=== PATIENT | female | born 1935 | race Caucasian/White ===

== ENCOUNTER 2017-09-17 23:00 | Inpatient (IN) | payer MEDICARE, MEDICAID ==
[~2017-09-17] VITALS: Ht 160 cm; Wt 66.0 kg
[2017-09-18] MEDS ORDERED: ONDANSETRON HCL 4MG/2ML VIAL IV STA (01:42)
[2017-09-18] MEDS ORDERED: SODIUM CHLORIDE 0.9% 1,000 ML IV ONE (01:42)
[2017-09-18] MEDS ORDERED: MORPHINE SULFATE 4 MG/ML CPJ (NOT FOR IM USE) IV STA (01:42)
[2017-09-18 02:12] LABS: BASOPHILS % 0.8 % (0.0-2.0); EOSINOPHILS % 1.4 % (0.0-5.0); HEMATOCRIT. 34.3 % (36.0-48.0); LYMPHOCYTES % 27.2 % (20.0-50.0); MEAN CORPUSCULAR HEMOGLOBIN 33.9 pg (28.0-32.0); MEAN CORPUSCULAR VOLUME 96.7 fL (81.0-99.0); MEAN PLATELET VOLUME 7.8 fl (7.4-10.4); MONOCYTES % 10.3 % (2.0-8.0); NEUTROPHILS % 60.3 % (40.0-76.0); PLATELET 235 x1000/uL (130-400); RED BLOOD CELL COUNT 3.55 mill/uL (4.2-5.4); RED CELL DISTRIBUTION WIDTH 12.8 % (11.6-14.6)
[2017-09-18 02:31] LABS: CARBON DIOXIDE 23 mEq/L (21-32); CHLORIDE 96 mEq/L (98-107); TROPONIN I < 0.02 ng/mL (0.00-0.04)
[2017-09-18] MEDS ORDERED: ACETAMINOPHEN 325MG TABLET PO PRN ×2 (04:00→08:00)
[2017-09-18 06:00] VITALS: BP 147/68
[2017-09-18] MEDS: SODIUM CHLORIDE 0.9% 1,000 ML IV SCH ×2 (07:09→17:26)
[2017-09-18] MEDS: TRAMADOL 50MG TABLET PO PRN ×2 (07:46→20:43)
[2017-09-18 08:00] VITALS: BP 145/71
[2017-09-18] MEDS ORDERED: MAGNESIUM/ALUMINUM HYDROXIDE/SIMETHICONE 30ML UDC PO PRN (08:00)
[2017-09-18] MEDS ORDERED: ONDANSETRON HCL 4MG/2ML VIAL IV PRN (08:00)
[2017-09-18] MEDS ORDERED: POTASSIUM CHLORIDE 20MEQ TABLET SR PO NR (08:00)
[2017-09-18] MEDS ORDERED: GUAIFENESIN 200MG/10ML SUGAR FREE UDC PO PRN (08:00)
[2017-09-18] MEDS ORDERED: CLONIDINE 0.1MG TABLET PO PRN (08:00)
[2017-09-18] MEDS ORDERED: ACETAMINOPHEN 650MG/20.3ML UDC GT PRN (08:00)
[2017-09-18] MEDS ORDERED: ACETAMINOPHEN 650MG SUPP PR PRN (08:00)
[2017-09-18] MEDS ORDERED: NA PHOS,M-B/NA PHOS,DI-BA ENEMA 118ML PR PRN (08:00)
[2017-09-18] MEDS ORDERED: HYDROCODONE/ACETAMINOPHEN 10/325MG TABLET PO PRN (08:00)
[2017-09-18] MEDS ORDERED: IPRATROPIUM/ALBUTEROL 0.5-3(2.5)MG/3ML NEB INH PRN (08:00)
[2017-09-18 08:24] LABS: BASOPHILS % 0.7 % (0.0-2.0); EOSINOPHILS % 1.5 % (0.0-5.0); HEMATOCRIT. 33.6 % (36.0-48.0); LYMPHOCYTES % 33.5 % (20.0-50.0); MEAN CORPUSCULAR HEMOGLOBIN 34.6 pg (28.0-32.0); MEAN CORPUSCULAR VOLUME 97.3 fL (81.0-99.0); MEAN PLATELET VOLUME 8.1 fl (7.4-10.4); MONOCYTES % 11.1 % (2.0-8.0); NEUTROPHILS % 53.2 % (40.0-76.0); PLATELET 237 x1000/uL (130-400); RED BLOOD CELL COUNT 3.46 mill/uL (4.2-5.4); RED CELL DISTRIBUTION WIDTH 12.7 % (11.6-14.6)
[2017-09-18 08:50] LABS: CARBON DIOXIDE 23 mEq/L (21-32); CHLORIDE 97 mEq/L (98-107)
[2017-09-18] MEDS: ENOXAPARIN 40MG/0.4ML SYR SUBCUT SCH (09:16)
[2017-09-18] MEDS: SODIUM CHLORIDE 0.9% INJ 3ML FLUSH IVF SCH ×2 (09:16→20:46)
[2017-09-18 09:47] LABS: T4 FREE 1.38 ng/dL (0.76-1.46)
[2017-09-18] MEDS ORDERED: MONT10TA21 PO (09:52)
[2017-09-18] MEDS ORDERED: TRAM50TA3 PO (09:52)
[2017-09-18] MEDS ORDERED: FLUT1DIS6 IH (09:52)
[2017-09-18] MEDS ORDERED: SITA50TA3 PO (09:52)
[2017-09-18] MEDS ORDERED: OMEP20TA2 PO (09:52)
[2017-09-18] MEDS ORDERED: CHOL500010 PO (09:52)
[2017-09-18] MEDS ORDERED: MOMETASONE (09:52)
[2017-09-18] MEDS ORDERED: DICL100T2 PO (09:52)
[2017-09-18] MEDS ORDERED: BENA20TA3 PO (09:52)
[2017-09-18 10:26] LABS: CLARITY URINE CLEAR (CLEAR); COLOR URINE YELLOW (YELLOW); GLUCOSE URINE NEGATIVE (NEGATIVE); KETONES URINE NEGATIVE (NEGATIVE); LEUKOCYTE ESTERASE URINE NEGATIVE (NEGATIVE); NITRITE URINE NEGATIVE (NEGATIVE); OCCULT BLOOD URINE NEGATIVE (NEGATIVE); PH URINE 7.5 (4.5-8.0); PROTEIN URINE NEGATIVE (NEGATIVE); SPECIFIC GRAVITY URINE 1.013 (1.005-1.030)
[2017-09-18 10:37] LABS: *AMPHETAMINES SCREEN URINE NEGATIVE (NEGATIVE); *BARBITURATES SCREEN URINE NEGATIVE (NEGATIVE); *BENZODIAZEPINES SCREEN URINE NEGATIVE (NEGATIVE); *COCAINE SCREEN URINE NEGATIVE (NEGATIVE); CANNABINOID URINE SCREEN NEGATIVE (NEGATIVE); METHADONE URINE SCREEN NEGATIVE (NEGATIVE); OPIATES URINE SCREEN PRESUMTIVE POSITIVE (NEGATIVE); PHENCYCLIDINE URINE SCREEN NEGATIVE (NEGATIVE)
[2017-09-18 12:00] VITALS: BP 138/63
[2017-09-18] MEDS: BLOOD SUGAR DIAGNOSTIC STRIP TEST SCH ×3 (12:24→20:33)
[2017-09-18] MEDS: INSULIN LISPRO 100 UNITS/ML SUBCUT SCH ×3 (12:24→20:33)
[2017-09-18] MEDS ORDERED: DEXTROSE 50% WATER 50ML SYRINGE IV PRN (12:30)
[2017-09-18] MEDS ORDERED: HYDROCODONE/ACETAMINOPHEN 5/325MG TABLET PO PRN (13:15)
[2017-09-18 16:06] VITALS: BP 128/57
[2017-09-18 16:10] LABS: CREATINE KINASE 102 IU/L (26-192); CREATINE KINASE MB FRACTION 3.3 ng/mL (0.5-3.6); TROPONIN I < 0.02 ng/mL (0.00-0.04)
[2017-09-18 16:37] LABS: T4 FREE 1.29 ng/dL (0.76-1.46)
[2017-09-18 16:57] LABS: FOLIC ACID (FOLATE) SERUM 19.4 ng/mL (>5.38)
[2017-09-18 20:00] VITALS: BP_SYST 140; BP_SYST 145; BP_DIAS 66; BP_DIAS 76
[2017-09-18] MEDS: DOCUSATE SODIUM 100MG CAPSULE PO PRN (20:35)
[2017-09-18 23:21] LABS: AMMONIA 36 uMol/L (<32)
[2017-09-18 23:30] LABS: CREATINE KINASE 111 IU/L (26-192); CREATINE KINASE MB FRACTION 3.5 ng/mL (0.5-3.6); TROPONIN I < 0.02 ng/mL (0.00-0.04)
[2017-09-19] VITALS: BP 133/65
[2017-09-19 04:00] VITALS: BP 137/60
[2017-09-19] MEDS: BLOOD SUGAR DIAGNOSTIC STRIP TEST SCH ×4 (05:23→21:41)
[2017-09-19] MEDS: INSULIN LISPRO 100 UNITS/ML SUBCUT SCH ×4 (05:23→21:54)
[2017-09-19] MEDS: SODIUM CHLORIDE 0.9% 1,000 ML IV SCH ×2 (05:25→21:44)
[2017-09-19] MEDS: SODIUM CHLORIDE 0.9% INJ 3ML FLUSH IVF SCH ×3 (05:48→21:42)
[2017-09-19 05:52] LABS: BASOPHILS % 0.7 % (0.0-2.0); EOSINOPHILS % 2.5 % (0.0-5.0); HEMATOCRIT. 34.8 % (36.0-48.0); LYMPHOCYTES % 32.7 % (20.0-50.0); MEAN CORPUSCULAR HEMOGLOBIN 33.8 pg (28.0-32.0); MEAN CORPUSCULAR VOLUME 98.2 fL (81.0-99.0); MEAN PLATELET VOLUME 8.2 fl (7.4-10.4); MONOCYTES % 11.3 % (2.0-8.0); NEUTROPHILS % 52.8 % (40.0-76.0); PLATELET 236 x1000/uL (130-400); RED BLOOD CELL COUNT 3.54 mill/uL (4.2-5.4); RED CELL DISTRIBUTION WIDTH 13.1 % (11.6-14.6)
[2017-09-19 06:41] LABS: CARBON DIOXIDE 26 mEq/L (21-32); CHLORIDE 96 mEq/L (98-107)
[2017-09-19 06:44] LABS: CREATINE KINASE 98 IU/L (26-192); CREATINE KINASE MB FRACTION 2.9 ng/mL (0.5-3.6); TROPONIN I < 0.02 ng/mL (0.00-0.04)
[2017-09-19 08:00] VITALS: BP 141/54
[2017-09-19] MEDS: DIPHENHYDRAMINE 50MG/ML VIAL IV PRN ×2 (09:29→14:49)
[2017-09-19] MEDS: ENOXAPARIN 40MG/0.4ML SYR SUBCUT SCH (09:29)
[2017-09-19 12:00] VITALS: BP 147/64
[2017-09-19] MEDS ORDERED: METHYLPREDNISOLONE SOD SUCC 125 MG/2 ML VIAL IV NR (15:00)
[2017-09-19] MEDS: LORATADINE 10MG TABLET PO SCH (15:55)
[2017-09-19] MEDS: TRAMADOL 50MG TABLET PO PRN ×2 (15:56→21:42)
[2017-09-19 16:00] VITALS: BP 139/63
[2017-09-19 20:00] VITALS: BP_SYST 142; BP_SYST 143; BP_DIAS 72; BP_DIAS 97
[2017-09-19] MEDS: DOCUSATE SODIUM 100MG CAPSULE PO PRN (21:41)
[2017-09-20] VITALS (7 sets, daily range): BP systolic 116–159; BP diastolic 48–82
[2017-09-20] MEDS: BLOOD SUGAR DIAGNOSTIC STRIP TEST SCH ×3 (05:49→18:07)
[2017-09-20] MEDS: SODIUM CHLORIDE 0.9% INJ 3ML FLUSH IVF SCH ×2 (05:55→13:28)
[2017-09-20 06:45] LABS: BASOPHILS % 0.2 % (0.0-2.0); HEMATOCRIT. 36.5 % (36.0-48.0); HEMOGLOBIN. 12.6 g/dL (12.0-16.0); LYMPHOCYTES % 26.2 % (20.0-50.0); MEAN CORPUSCULAR HEMOGLOBIN 33.8 pg (28.0-32.0); MEAN CORPUSCULAR VOLUME 97.6 fL (81.0-99.0); MEAN PLATELET VOLUME 8.2 fl (7.4-10.4); MONOCYTES % 3.8 % (2.0-8.0); NEUTROPHILS % 69.8 % (40.0-76.0); PLATELET 251 x1000/uL (130-400); RED BLOOD CELL COUNT 3.74 mill/uL (4.2-5.4); RED CELL DISTRIBUTION WIDTH 12.9 % (11.6-14.6)
[2017-09-20 07:41] LABS: CHLORIDE 92 mEq/L (98-107)
[2017-09-20] MEDS: SODIUM CHLORIDE 0.9% 1,000 ML IV SCH (07:45)
[2017-09-20 08:08] LABS: CARBON DIOXIDE 22 mEq/L (21-32)
[2017-09-20] MEDS: ENOXAPARIN 40MG/0.4ML SYR SUBCUT SCH (08:41)
[2017-09-20] MEDS: LORATADINE 10MG TABLET PO SCH (08:41)
[2017-09-20] MEDS: INSULIN LISPRO 100 UNITS/ML SUBCUT SCH ×3 (08:42→18:07)
[2017-09-20] MEDS: TRAMADOL 50MG TABLET PO PRN (12:03)
== END 2017-09-20 18:40 | disposition home or self-care (01) | DRG 73 ==
LOC: ER 23:00 → 7WST 09-18 03:57 → EDBEDREQ 09-18 03:59 → EDBEDREQTM 09-18 03:59 → ENRESERV 09-18 04:07
PROVIDERS: ADMIT Family Medicine; ATTEND Family Medicine
PROC: 4A00X4Z Measurement of Central Nervous Electrical Activity, External Approach (ICD-10-PCS; principal; 2017-09-19)
DX: G90.8 Other disorders of autonomic nervous system (principal); G92 Toxic encephalopathy; E11.9 Type 2 diabetes mellitus without complications; G30.9 Alzheimer's disease, unspecified; F02.80 Dementia in other diseases classified elsewhere, unspecified severity, without behavioral disturbance, psychotic disturbance, mood disturbance, and anxiety; E87.1 Hypo-osmolality and hyponatremia; W18.39XA Other fall on same level, initial encounter; I35.1 Nonrheumatic aortic (valve) insufficiency; E87.6 Hypokalemia; S20.219A Contusion of unspecified front wall of thorax, initial encounter; I10 Essential (primary) hypertension; J45.909 Unspecified asthma, uncomplicated; R21 Rash and other nonspecific skin eruption; M19.90 Unspecified osteoarthritis, unspecified site; M81.0 Age-related osteoporosis without current pathological fracture; Y93.89 Activity, other specified; Y92.89 Other specified places as the place of occurrence of the external cause; Y99.8 Other external cause status
CPT/HCPCS: 36415; 70450; 70544; 70553; 71010; 71100; 80048; 80053; 80061; 80305; 81003; 82140; 82550; 82553; 82607; 82746; 82962; 83036; 83880; 84439; 84443; 84481; 84484; 85025; 85379; 87086; 93005; 93306; 93880; 96374; 96375; 97162; 97166; 97530; 99285; A6261; J1200; J1650; J1815; J2270; J2405; J2930; J7030

== ENCOUNTER 2019-11-29 22:10 | Inpatient (IN) | payer MEDICARE, MEDICAID ==
[~2019-11-29] VITALS: Ht 152.4 cm; Wt 70.3 kg
[~2019-11-29 22:10] MED LIST: BENA20TA10 PO; CARB1TAB9 PO; MEMA1TAB2 PO; METF-815 MT; SITA50TA3 PO
[2019-11-29 22:40] VITALS: BP 147/74
[2019-11-29] MEDS ORDERED: DEXTROSE 50% WATER 50ML SYRINGE IV PRN (23:15)
[2019-11-29] MEDS ORDERED: DOCUSATE SODIUM 100MG CAPSULE PO PRN (23:15)
[2019-11-29] MEDS ORDERED: MAGNESIUM/ALUMINUM HYDROXIDE/SIMETHICONE 30ML UDC PO PRN (23:15)
[2019-11-29] MEDS ORDERED: ONDANSETRON HCL 4MG/2ML INJ IV PRN (23:15)
[2019-11-29] MEDS ORDERED: CLONIDINE 0.1MG TABLET PO PRN (23:15)
[2019-11-30 05:42] LABS: BASOPHILS % 0.3 % (0.0-2.0); EOSINOPHILS % 3.5 % (0.0-5.0); HEMATOCRIT. 32.7 % (36.0-48.0); HEMOGLOBIN. 11.3 g/dL (12.0-16.0); LYMPHOCYTES % 15.4 % (20.0-50.0); MEAN CORPUSCULAR HEMOGLOBIN 34.2 pg (28.0-32.0); MEAN CORPUSCULAR VOLUME 99.1 fL (81.0-99.0); MEAN PLATELET VOLUME 8.8 fl (7.4-10.4); MONOCYTES % 9.9 % (2.0-8.0); NEUTROPHILS % 70.9 % (40.0-76.0); PLATELET 276 x1000/uL (130-400); RED CELL DISTRIBUTION WIDTH 13.2 % (11.6-14.6)
[2019-11-30 06:07] LABS: CHLORIDE 104 mEq/L (98-107)
[2019-11-30] MEDS: CARBIDOPA/LEVODOPA 25/100MG TABLET PO SCH ×3 (06:24→21:04)
[2019-11-30] MEDS: OMEPRAZOLE 20MG CAPSULE EXTENDED RELEASE PO SCH (06:25)
[2019-11-30] MEDS: BLOOD SUGAR DIAGNOSTIC STRIP TEST SCH ×4 (06:28→20:45)
[2019-11-30] MEDS: INSULIN LISPRO 100 UNITS/ML SUBCUT SCH ×5 (06:55→21:47)
[2019-11-30] MEDS: ACETYLCYSTEINE 100MG/ML 10% VIAL 4ML INH SCH ×3 (07:27→22:15)
[2019-11-30] MEDS: IPRATROPIUM/ALBUTEROL 0.5-3(2.5)MG/3ML NEB HHN PRN ×2 (07:27→15:03)
[2019-11-30 08:00] VITALS: BP 149/62
[2019-11-30] MEDS ORDERED: ENOXAPARIN 30MG/0.3ML SYR SUBCUT SCH (09:00)
[2019-11-30] MEDS ORDERED: MEMANTINE 28 MG PO SCH (09:00)
[2019-11-30] MEDS: GUAIFENESIN 600MG ER TABLET PO SCH ×2 (09:38→20:45)
[2019-11-30] MEDS ORDERED: NITROGLYCERIN 0.4MG TABLET SL SL NR (11:00)
[2019-11-30] MEDS: MONTELUKAST SODIUM 10MG TABLET PO SCH (17:56)
[2019-11-30] MEDS: METFORMIN HCL 500MG TABLET PO SCH (17:56)
[2019-11-30] MEDS: CLONIDINE 0.1MG TABLET PO SCH ×2 (18:17→21:04)
[2019-11-30 20:00] VITALS: BP 138/69
[2019-11-30] MEDS: BUDESONIDE 0.5MG/2ML NEB HHN SCH (20:20)
[2019-12-01] MEDS: IPRATROPIUM/ALBUTEROL 0.5-3(2.5)MG/3ML NEB HHN PRN ×3 (00:16→17:00)
[2019-12-01] MEDS: CARBIDOPA/LEVODOPA 25/100MG TABLET PO SCH ×3 (05:47→20:55)
[2019-12-01] MEDS: CLONIDINE 0.1MG TABLET PO SCH ×3 (05:48→20:56)
[2019-12-01] MEDS: BLOOD SUGAR DIAGNOSTIC STRIP TEST SCH ×4 (05:48→20:55)
[2019-12-01] MEDS: OMEPRAZOLE 20MG CAPSULE EXTENDED RELEASE PO SCH (06:01)
[2019-12-01] MEDS: INSULIN LISPRO 100 UNITS/ML SUBCUT SCH ×4 (06:25→21:00)
[2019-12-01 07:35] LABS: BASOPHILS % 0.4 % (0.0-2.0); EOSINOPHILS % 2.8 % (0.0-5.0); HEMATOCRIT. 32.4 % (36.0-48.0); HEMOGLOBIN. 10.8 g/dL (12.0-16.0); LYMPHOCYTES % 18.4 % (20.0-50.0); MEAN PLATELET VOLUME 8.9 fl (7.4-10.4); MONOCYTES % 9.7 % (2.0-8.0); NEUTROPHILS % 68.7 % (40.0-76.0); PLATELET 300 x1000/uL (130-400); RED BLOOD CELL COUNT 3.27 mill/uL (4.2-5.4)
[2019-12-01 07:55] LABS: CHLORIDE 102 mEq/L (98-107)
[2019-12-01 08:00] VITALS: BP 111/51
[2019-12-01] MEDS: ACETYLCYSTEINE 100MG/ML 10% VIAL 4ML INH SCH ×2 (08:10→17:00)
[2019-12-01] MEDS: BUDESONIDE 0.5MG/2ML NEB HHN SCH ×2 (08:23→21:19)
[2019-12-01] MEDS: ENOXAPARIN 40MG/0.4ML SYR SUBCUT SCH (09:04)
[2019-12-01] MEDS: GUAIFENESIN 600MG ER TABLET PO SCH ×2 (09:04→20:55)
[2019-12-01] MEDS: MEMANTINE HCL 10MG TABLET PO SCH ×2 (10:11→20:55)
[2019-12-01] MEDS: MONTELUKAST SODIUM 10MG TABLET PO SCH (16:46)
[2019-12-01] MEDS: METFORMIN HCL 500MG TABLET PO SCH (16:46)
[2019-12-01 20:00] VITALS: BP 131/56
[2019-12-01 20:31] LABS: CLARITY URINE CLEAR (CLEAR); COLOR URINE YELLOW (YELLOW); KETONES URINE NEGATIVE (NEGATIVE); LEUKOCYTE ESTERASE URINE 1+ (NEGATIVE); NITRITE URINE NEGATIVE (NEGATIVE); OCCULT BLOOD URINE NEGATIVE (NEGATIVE); PH URINE 5.5 (4.5-8.0); PROTEIN URINE NEGATIVE (NEGATIVE); SPECIFIC GRAVITY URINE 1.012 (1.005-1.030); UROBILINOGEN URINE 0.2 E.U./dL (0.2-1.0)
[2019-12-02] MEDS: IPRATROPIUM/ALBUTEROL 0.5-3(2.5)MG/3ML NEB HHN PRN ×3 (01:04→15:36)
[2019-12-02] MEDS: ACETYLCYSTEINE 100MG/ML 10% VIAL 4ML INH SCH ×3 (01:04→15:32)
[2019-12-02] MEDS: CARBIDOPA/LEVODOPA 25/100MG TABLET PO SCH ×3 (05:48→22:08)
[2019-12-02] MEDS: FAMOTIDINE 20MG TABLET PO SCH (05:48)
[2019-12-02] MEDS: BLOOD SUGAR DIAGNOSTIC STRIP TEST SCH ×4 (05:48→21:00)
[2019-12-02] MEDS: CLONIDINE 0.1MG TABLET PO SCH ×3 (05:59→22:08)
[2019-12-02] MEDS: INSULIN LISPRO 100 UNITS/ML SUBCUT SCH ×4 (06:00→22:27)
[2019-12-02 08:00] VITALS: BP 110/66
[2019-12-02] MEDS: MEMANTINE HCL 10MG TABLET PO SCH ×2 (08:18→22:08)
[2019-12-02] MEDS: GUAIFENESIN 600MG ER TABLET PO SCH ×2 (08:18→22:08)
[2019-12-02] MEDS: ENOXAPARIN 40MG/0.4ML SYR SUBCUT SCH (08:18)
[2019-12-02] MEDS: BUDESONIDE 0.5MG/2ML NEB HHN SCH ×2 (08:32→20:05)
[2019-12-02] MEDS: METFORMIN HCL 500MG TABLET PO SCH (16:55)
[2019-12-02] MEDS: MONTELUKAST SODIUM 10MG TABLET PO SCH (16:55)
[2019-12-02 20:00] VITALS: BP 128/55
[2019-12-03] MEDS: IPRATROPIUM/ALBUTEROL 0.5-3(2.5)MG/3ML NEB HHN PRN ×4 (00:54→21:24)
[2019-12-03] MEDS: ACETYLCYSTEINE 100MG/ML 10% VIAL 4ML INH SCH ×3 (00:54→15:28)
[2019-12-03] MEDS: BLOOD SUGAR DIAGNOSTIC STRIP TEST SCH ×4 (06:47→20:45)
[2019-12-03] MEDS: INSULIN LISPRO 100 UNITS/ML SUBCUT SCH ×4 (06:48→20:45)
[2019-12-03] MEDS: CARBIDOPA/LEVODOPA 25/100MG TABLET PO SCH ×3 (06:50→21:36)
[2019-12-03] MEDS: CLONIDINE 0.1MG TABLET PO SCH ×3 (06:50→21:38)
[2019-12-03] MEDS: FAMOTIDINE 20MG TABLET PO SCH (06:51)
[2019-12-03] MEDS: MEMANTINE HCL 10MG TABLET PO SCH (09:00)
[2019-12-03] MEDS: ENOXAPARIN 40MG/0.4ML SYR SUBCUT SCH (09:34)
[2019-12-03] MEDS: BUDESONIDE 0.5MG/2ML NEB HHN SCH (09:39)
[2019-12-03] MEDS: FLUCONAZOLE 100MG TABLET PO SCH (12:49)
[2019-12-03 14:45] VITALS: BP 105/49
[2019-12-03] MEDS: METFORMIN HCL 500MG TABLET PO SCH (17:23)
[2019-12-03] MEDS: MONTELUKAST SODIUM 10MG TABLET PO SCH (17:23)
[2019-12-03] MEDS: MEMANTINE HCL 28 MG XX SCH (18:15)
[2019-12-03 20:00] VITALS: BP 112/59
[2019-12-03] MEDS: GUAIFENESIN 600MG ER TABLET PO SCH ×3 (21:36→22:42)
[2019-12-04] MEDS: ACETYLCYSTEINE 100MG/ML 10% VIAL 4ML INH SCH ×3 (00:19→20:59)
[2019-12-04] MEDS: IPRATROPIUM/ALBUTEROL 0.5-3(2.5)MG/3ML NEB HHN PRN ×3 (00:21→20:58)
[2019-12-04] MEDS: CARBIDOPA/LEVODOPA 25/100MG TABLET PO SCH ×3 (06:17→21:10)
[2019-12-04] MEDS: FAMOTIDINE 20MG TABLET PO SCH (06:17)
[2019-12-04] MEDS: CLONIDINE 0.1MG TABLET PO SCH ×3 (06:18→21:11)
[2019-12-04] MEDS: BLOOD SUGAR DIAGNOSTIC STRIP TEST SCH ×4 (06:18→21:11)
[2019-12-04] MEDS: INSULIN LISPRO 100 UNITS/ML SUBCUT SCH ×4 (06:36→21:13)
[2019-12-04 08:00] VITALS: BP 134/54
[2019-12-04] MEDS: GUAIFENESIN 600MG ER TABLET PO SCH ×2 (08:30→21:10)
[2019-12-04] MEDS: FLUCONAZOLE 100MG TABLET PO SCH (08:30)
[2019-12-04] MEDS: ENOXAPARIN 40MG/0.4ML SYR SUBCUT SCH (08:31)
[2019-12-04] MEDS: MEMANTINE HCL 28 MG XX SCH (08:32)
[2019-12-04] MEDS: BUDESONIDE 0.5MG/2ML NEB HHN SCH (13:19)
[2019-12-04] MEDS: MONTELUKAST SODIUM 10MG TABLET PO SCH (16:22)
[2019-12-04] MEDS: METFORMIN HCL 500MG TABLET PO SCH (16:22)
[2019-12-04] MEDS: ACETAMINOPHEN 325MG TABLET PO PRN (18:28)
[2019-12-04 20:00] VITALS: BP 110/53
[2019-12-05] MEDS: ACETYLCYSTEINE 100MG/ML 10% VIAL 4ML INH SCH ×2 (00:30→08:57)
[2019-12-05] MEDS: IPRATROPIUM/ALBUTEROL 0.5-3(2.5)MG/3ML NEB HHN PRN ×3 (00:30→16:13)
[2019-12-05] MEDS: FAMOTIDINE 20MG TABLET PO SCH (06:05)
[2019-12-05] MEDS: CLONIDINE 0.1MG TABLET PO SCH ×3 (06:05→20:25)
[2019-12-05] MEDS: BLOOD SUGAR DIAGNOSTIC STRIP TEST SCH ×4 (06:05→20:24)
[2019-12-05] MEDS: CARBIDOPA/LEVODOPA 25/100MG TABLET PO SCH ×3 (06:05→20:24)
[2019-12-05] MEDS: INSULIN LISPRO 100 UNITS/ML SUBCUT SCH ×4 (06:26→21:00)
[2019-12-05 08:00] VITALS: BP 115/50
[2019-12-05] MEDS: ENOXAPARIN 40MG/0.4ML SYR SUBCUT SCH (08:36)
[2019-12-05] MEDS: FLUCONAZOLE 100MG TABLET PO SCH (08:36)
[2019-12-05] MEDS: MEMANTINE HCL 28 MG XX SCH (08:36)
[2019-12-05 08:51] LABS: BASOPHILS % 0.6 % (0.0-2.0); EOSINOPHILS % 2.5 % (0.0-5.0); HEMATOCRIT. 31.9 % (36.0-48.0); HEMOGLOBIN. 10.8 g/dL (12.0-16.0); LYMPHOCYTES % 21.2 % (20.0-50.0); MEAN CORPUSCULAR HEMOGLOBIN 33.6 pg (28.0-32.0); MEAN CORPUSCULAR VOLUME 98.9 fL (81.0-99.0); MEAN PLATELET VOLUME 8.2 fl (7.4-10.4); MONOCYTES % 8.6 % (2.0-8.0); NEUTROPHILS % 67.1 % (40.0-76.0); PLATELET 373 x1000/uL (130-400); RED BLOOD CELL COUNT 3.22 mill/uL (4.2-5.4); RED CELL DISTRIBUTION WIDTH 13.1 % (11.6-14.6)
[2019-12-05 10:22] LABS: CHLORIDE 103 mEq/L (98-107)
[2019-12-05] MEDS: GUAIFENESIN 600MG ER TABLET PO SCH ×2 (10:22→20:23)
[2019-12-05 10:29] LABS: PHOSPHORUS 3.1 mg/dL (2.5-4.9)
[2019-12-05] MEDS: METFORMIN HCL 500MG TABLET PO SCH (17:31)
[2019-12-05] MEDS: MONTELUKAST SODIUM 10MG TABLET PO SCH (17:31)
[2019-12-05 20:00] VITALS: BP 105/53
[2019-12-05] MEDS: ACETAMINOPHEN 325MG TABLET PO PRN (20:24)
[2019-12-06] MEDS: FAMOTIDINE 20MG TABLET PO SCH (06:07)
[2019-12-06] MEDS: BLOOD SUGAR DIAGNOSTIC STRIP TEST SCH ×4 (06:07→20:39)
[2019-12-06] MEDS: CLONIDINE 0.1MG TABLET PO SCH ×4 (06:07→20:35)
[2019-12-06] MEDS: CARBIDOPA/LEVODOPA 25/100MG TABLET PO SCH ×3 (06:07→21:20)
[2019-12-06] MEDS: INSULIN LISPRO 100 UNITS/ML SUBCUT SCH ×4 (06:17→21:22)
[2019-12-06 07:10] LABS: 25-HYDROXY VITAMIN D3 27 ng/mL (.)
[2019-12-06 08:00] VITALS: BP 155/97
[2019-12-06] MEDS: FLUCONAZOLE 100MG TABLET PO SCH (08:25)
[2019-12-06] MEDS: ENOXAPARIN 40MG/0.4ML SYR SUBCUT SCH (08:25)
[2019-12-06] MEDS: GUAIFENESIN 600MG ER TABLET PO SCH ×2 (08:25→20:34)
[2019-12-06] MEDS: MEMANTINE HCL 28 MG XX SCH (08:28)
[2019-12-06] MEDS: IPRATROPIUM/ALBUTEROL 0.5-3(2.5)MG/3ML NEB HHN PRN ×3 (08:33→15:31)
[2019-12-06 12:30] VITALS: BP 106/67
[2019-12-06] MEDS: ERGOCALCIFEROL 50000UNITS CAPSULE PO SCH (14:15)
[2019-12-06] MEDS: METFORMIN HCL 500MG TABLET PO SCH (17:29)
[2019-12-06] MEDS: MONTELUKAST SODIUM 10MG TABLET PO SCH (17:29)
[2019-12-06 20:00] VITALS: BP 132/59
[2019-12-07] MEDS: FAMOTIDINE 20MG TABLET PO SCH (06:06)
[2019-12-07] MEDS: CARBIDOPA/LEVODOPA 25/100MG TABLET PO SCH ×3 (06:06→23:22)
[2019-12-07] MEDS: BLOOD SUGAR DIAGNOSTIC STRIP TEST SCH ×4 (06:10→21:00)
[2019-12-07] MEDS: INSULIN LISPRO 100 UNITS/ML SUBCUT SCH ×4 (06:39→21:00)
[2019-12-07 07:06] LABS: BASOPHILS % 0.7 % (0.0-2.0); EOSINOPHILS % 3.4 % (0.0-5.0); HEMOGLOBIN. 11.3 g/dL (12.0-16.0); LYMPHOCYTES % 33.4 % (20.0-50.0); MEAN CORPUSCULAR HEMOGLOBIN 33.8 pg (28.0-32.0); MEAN CORPUSCULAR VOLUME 98.7 fL (81.0-99.0); MEAN PLATELET VOLUME 8.5 fl (7.4-10.4); MONOCYTES % 11.1 % (2.0-8.0); NEUTROPHILS % 51.4 % (40.0-76.0); PLATELET 348 x1000/uL (130-400); RED BLOOD CELL COUNT 3.35 mill/uL (4.2-5.4); RED CELL DISTRIBUTION WIDTH 13.3 % (11.6-14.6)
[2019-12-07 07:39] LABS: CHLORIDE 102 mEq/L (98-107)
[2019-12-07 08:00] VITALS: BP 102/32
[2019-12-07] MEDS: CLONIDINE 0.1MG TABLET PO SCH (08:30)
[2019-12-07] MEDS: MEMANTINE HCL 28 MG XX SCH (08:31)
[2019-12-07] MEDS: GUAIFENESIN 600MG ER TABLET PO SCH ×2 (08:31→20:58)
[2019-12-07] MEDS: FLUCONAZOLE 100MG TABLET PO SCH (08:33)
[2019-12-07] MEDS: ENOXAPARIN 40MG/0.4ML SYR SUBCUT SCH (10:12)
[2019-12-07] MEDS: IPRATROPIUM/ALBUTEROL 0.5-3(2.5)MG/3ML NEB HHN PRN (12:25)
[2019-12-07] MEDS: MONTELUKAST SODIUM 10MG TABLET PO SCH (17:38)
[2019-12-07] MEDS: METFORMIN HCL 500MG TABLET PO SCH (17:38)
[2019-12-07 20:00] VITALS: BP 135/66
[2019-12-07] MEDS: GUAIFENESIN 200MG/10ML SUGAR FREE UDC PO PRN (20:59)
[2019-12-07] MEDS: IPRATROPIUM/ALBUTEROL 0.5-3(2.5)MG/3ML NEB HHN SCH (21:08)
[2019-12-07] MEDS: BUDESONIDE 0.5MG/2ML NEB HHN SCH (21:08)
[2019-12-08] MEDS: IPRATROPIUM/ALBUTEROL 0.5-3(2.5)MG/3ML NEB HHN SCH ×4 (01:04→22:13)
[2019-12-08] MEDS: FAMOTIDINE 20MG TABLET PO SCH (06:24)
[2019-12-08] MEDS: CARBIDOPA/LEVODOPA 25/100MG TABLET PO SCH ×3 (06:25→22:00)
[2019-12-08] MEDS: BLOOD SUGAR DIAGNOSTIC STRIP TEST SCH ×4 (06:25→22:00)
[2019-12-08] MEDS: INSULIN LISPRO 100 UNITS/ML SUBCUT SCH ×4 (06:56→23:27)
[2019-12-08] MEDS: BUDESONIDE 0.5MG/2ML NEB HHN SCH ×2 (07:48→22:13)
[2019-12-08 07:53] VITALS: BP 125/53
[2019-12-08] MEDS: FLUCONAZOLE 100MG TABLET PO SCH (08:59)
[2019-12-08] MEDS: GUAIFENESIN 600MG ER TABLET PO SCH ×2 (08:59→22:00)
[2019-12-08] MEDS: AMLODIPINE 2.5MG TABLET PO SCH (08:59)
[2019-12-08] MEDS: ENOXAPARIN 40MG/0.4ML SYR SUBCUT SCH (09:00)
[2019-12-08] MEDS: MEMANTINE HCL 28 MG XX SCH (09:00)
[2019-12-08] MEDS: GUAIFENESIN 200MG/10ML SUGAR FREE UDC PO PRN (09:24)
[2019-12-08] MEDS: MONTELUKAST SODIUM 10MG TABLET PO SCH (16:56)
[2019-12-08] MEDS: METFORMIN HCL 500MG TABLET PO SCH (16:56)
[2019-12-08 20:00] VITALS: BP 140/68
[2019-12-09] MEDS: IPRATROPIUM/ALBUTEROL 0.5-3(2.5)MG/3ML NEB HHN SCH ×4 (03:43→20:41)
[2019-12-09] MEDS: FAMOTIDINE 20MG TABLET PO SCH (06:36)
[2019-12-09] MEDS: BLOOD SUGAR DIAGNOSTIC STRIP TEST SCH ×4 (06:36→21:55)
[2019-12-09] MEDS: CARBIDOPA/LEVODOPA 25/100MG TABLET PO SCH ×3 (06:36→22:11)
[2019-12-09] MEDS: INSULIN LISPRO 100 UNITS/ML SUBCUT SCH ×4 (07:05→22:15)
[2019-12-09 08:00] VITALS: BP 136/73
[2019-12-09] MEDS: GUAIFENESIN 600MG ER TABLET PO SCH ×2 (08:24→22:10)
[2019-12-09] MEDS: FLUCONAZOLE 100MG TABLET PO SCH (08:24)
[2019-12-09] MEDS: MEMANTINE HCL 28 MG XX SCH (08:25)
[2019-12-09] MEDS: AMLODIPINE 2.5MG TABLET PO SCH (08:25)
[2019-12-09] MEDS: ENOXAPARIN 40MG/0.4ML SYR SUBCUT SCH (08:25)
[2019-12-09] MEDS: BUDESONIDE 0.5MG/2ML NEB HHN SCH ×2 (09:51→20:41)
[2019-12-09] MEDS: MONTELUKAST SODIUM 10MG TABLET PO SCH (16:28)
[2019-12-09] MEDS: METFORMIN HCL 500MG TABLET PO SCH (16:28)
[2019-12-09] MEDS: ACETAMINOPHEN 325MG TABLET PO PRN (19:36)
[2019-12-09] MEDS: GUAIFENESIN 200MG/10ML SUGAR FREE UDC PO PRN (19:37)
[2019-12-09 20:00] VITALS: BP 136/72
[2019-12-10] MEDS: BLOOD SUGAR DIAGNOSTIC STRIP TEST SCH ×4 (06:01→21:10)
[2019-12-10] MEDS: CARBIDOPA/LEVODOPA 25/100MG TABLET PO SCH ×3 (06:01→21:09)
[2019-12-10] MEDS: FAMOTIDINE 20MG TABLET PO SCH (06:01)
[2019-12-10] MEDS: INSULIN LISPRO 100 UNITS/ML SUBCUT SCH ×4 (06:49→21:59)
[2019-12-10 08:10] VITALS: BP 137/66
[2019-12-10] MEDS: ENOXAPARIN 40MG/0.4ML SYR SUBCUT SCH (08:38)
[2019-12-10] MEDS: AMLODIPINE 2.5MG TABLET PO SCH (08:38)
[2019-12-10] MEDS: GUAIFENESIN 600MG ER TABLET PO SCH (08:38)
[2019-12-10] MEDS: FLUCONAZOLE 100MG TABLET PO SCH (08:38)
[2019-12-10] MEDS: GUAIFENESIN 200MG/10ML SUGAR FREE UDC PO PRN (09:08)
[2019-12-10] MEDS: MEMANTINE HCL 28 MG XX SCH (09:08)
[2019-12-10] MEDS: IPRATROPIUM/ALBUTEROL 0.5-3(2.5)MG/3ML NEB HHN SCH ×4 (11:00→20:06)
[2019-12-10] MEDS: BUDESONIDE 0.5MG/2ML NEB HHN SCH ×2 (11:00→20:06)
[2019-12-10] MEDS ORDERED: GUAIFENESIN/DM 600MG/30MG ER TAB 12HR PO PRN (14:00)
[2019-12-10] MEDS: ACETYLCYSTEINE 100MG/ML 10% VIAL 4ML INH SCH (15:46)
[2019-12-10] MEDS: METFORMIN HCL 500MG TABLET PO SCH (16:01)
[2019-12-10] MEDS: MONTELUKAST SODIUM 10MG TABLET PO SCH (16:01)
[2019-12-10] MEDS: LIDOCAINE 5% PATCH TOP SCH (16:02)
[2019-12-10 20:00] VITALS: BP 124/67
[2019-12-10] MEDS: FLUTICASONE PROPIONATE 50MCG/SPRAY BOTTLE BOTHNSTRLS SCH (21:10)
[2019-12-11] MEDS: ACETYLCYSTEINE 100MG/ML 10% VIAL 4ML INH SCH ×3 (00:45→16:25)
[2019-12-11] MEDS: IPRATROPIUM/ALBUTEROL 0.5-3(2.5)MG/3ML NEB HHN SCH ×4 (00:46→21:08)
[2019-12-11] MEDS: FAMOTIDINE 20MG TABLET PO SCH (05:35)
[2019-12-11] MEDS: CARBIDOPA/LEVODOPA 25/100MG TABLET PO SCH ×3 (05:35→21:38)
[2019-12-11] MEDS: BLOOD SUGAR DIAGNOSTIC STRIP TEST SCH ×4 (05:36→21:38)
[2019-12-11] MEDS: INSULIN LISPRO 100 UNITS/ML SUBCUT SCH ×4 (06:33→21:46)
[2019-12-11 07:17] LABS: HEMATOCRIT. 35.1 % (36.0-48.0); HEMOGLOBIN. 11.8 g/dL (12.0-16.0); LYMPHOCYTES % 33.9 % (20.0-50.0); MEAN CORPUSCULAR HEMOGLOBIN 33.5 pg (28.0-32.0); MEAN CORPUSCULAR VOLUME 99.6 fL (81.0-99.0); MONOCYTES % 9.4 % (2.0-8.0); NEUTROPHILS % 52.7 % (40.0-76.0); PLATELET 312 x1000/uL (130-400); RED BLOOD CELL COUNT 3.52 mill/uL (4.2-5.4); RED CELL DISTRIBUTION WIDTH 13.4 % (11.6-14.6)
[2019-12-11 07:30] LABS: CHLORIDE 103 mEq/L (98-107)
[2019-12-11 08:05] VITALS: BP 134/69
[2019-12-11] MEDS: MEMANTINE HCL 28 MG XX SCH (08:48)
[2019-12-11] MEDS: AMLODIPINE 2.5MG TABLET PO SCH (08:48)
[2019-12-11] MEDS: FLUTICASONE PROPIONATE 50MCG/SPRAY BOTTLE BOTHNSTRLS SCH ×2 (08:48→21:39)
[2019-12-11] MEDS: ENOXAPARIN 40MG/0.4ML SYR SUBCUT SCH (08:48)
[2019-12-11] MEDS: LIDOCAINE 5% PATCH TOP SCH (08:49)
[2019-12-11] MEDS: GUAIFENESIN 200MG/10ML SUGAR FREE UDC PO PRN ×2 (10:09→21:38)
[2019-12-11] MEDS: MONTELUKAST SODIUM 10MG TABLET PO SCH (16:53)
[2019-12-11] MEDS: METFORMIN HCL 500MG TABLET PO SCH (16:53)
[2019-12-11 20:00] VITALS: BP 122/60
[2019-12-12] MEDS: IPRATROPIUM/ALBUTEROL 0.5-3(2.5)MG/3ML NEB HHN SCH ×2 (01:10→20:55)
[2019-12-12] MEDS: BLOOD SUGAR DIAGNOSTIC STRIP TEST SCH ×4 (06:39→21:22)
[2019-12-12] MEDS: GUAIFENESIN 200MG/10ML SUGAR FREE UDC PO PRN ×2 (06:39→21:22)
[2019-12-12] MEDS: CARBIDOPA/LEVODOPA 25/100MG TABLET PO SCH ×3 (06:39→21:22)
[2019-12-12] MEDS: FAMOTIDINE 20MG TABLET PO SCH (06:39)
[2019-12-12] MEDS: INSULIN LISPRO 100 UNITS/ML SUBCUT SCH ×4 (06:45→21:30)
[2019-12-12 08:15] VITALS: BP 130/67
[2019-12-12] MEDS: MEMANTINE HCL 28 MG XX SCH (08:34)
[2019-12-12] MEDS: AMLODIPINE 2.5MG TABLET PO SCH (08:34)
[2019-12-12] MEDS: ENOXAPARIN 40MG/0.4ML SYR SUBCUT SCH (08:34)
[2019-12-12] MEDS: LIDOCAINE 5% PATCH TOP SCH (08:34)
[2019-12-12] MEDS: FLUTICASONE PROPIONATE 50MCG/SPRAY BOTTLE BOTHNSTRLS SCH ×2 (08:34→21:22)
[2019-12-12] MEDS: METFORMIN HCL 500MG TABLET PO SCH (17:08)
[2019-12-12] MEDS: MONTELUKAST SODIUM 10MG TABLET PO SCH (17:08)
[2019-12-12 20:00] VITALS: BP 128/61
[2019-12-13] MEDS: IPRATROPIUM/ALBUTEROL 0.5-3(2.5)MG/3ML NEB HHN SCH ×4 (01:37→21:41)
[2019-12-13] MEDS: GUAIFENESIN 200MG/10ML SUGAR FREE UDC PO PRN (06:29)
[2019-12-13] MEDS: BLOOD SUGAR DIAGNOSTIC STRIP TEST SCH ×4 (06:30→21:16)
[2019-12-13] MEDS: CARBIDOPA/LEVODOPA 25/100MG TABLET PO SCH ×3 (06:30→21:15)
[2019-12-13] MEDS: FAMOTIDINE 20MG TABLET PO SCH ×2 (06:30→21:15)
[2019-12-13] MEDS: INSULIN LISPRO 100 UNITS/ML SUBCUT SCH ×4 (06:38→22:07)
[2019-12-13 07:45] LABS: BASOPHILS % 0.8 % (0.0-2.0); EOSINOPHILS % 4.6 % (0.0-5.0); HEMATOCRIT. 36.1 % (36.0-48.0); HEMOGLOBIN. 12.1 g/dL (12.0-16.0); MEAN CORPUSCULAR HEMOGLOBIN 33.9 pg (28.0-32.0); MEAN CORPUSCULAR VOLUME 101.3 fL (81.0-99.0); MEAN PLATELET VOLUME 9.4 fl (7.4-10.4); MONOCYTES % 11.1 % (2.0-8.0); NEUTROPHILS % 50.5 % (40.0-76.0); PLATELET 279 x1000/uL (130-400); RED BLOOD CELL COUNT 3.57 mill/uL (4.2-5.4); RED CELL DISTRIBUTION WIDTH 13.6 % (11.6-14.6)
[2019-12-13 07:56] LABS: CHLORIDE 104 mEq/L (98-107)
[2019-12-13 08:00] VITALS: BP 135/55
[2019-12-13] MEDS: ERGOCALCIFEROL 50000UNITS CAPSULE PO SCH (08:01)
[2019-12-13] MEDS: AMLODIPINE 2.5MG TABLET PO SCH ×2 (08:02→21:15)
[2019-12-13] MEDS: MEMANTINE HCL 28 MG XX SCH ×2 (08:02→08:03)
[2019-12-13] MEDS: FLUTICASONE PROPIONATE 50MCG/SPRAY BOTTLE BOTHNSTRLS SCH ×2 (08:04→21:14)
[2019-12-13] MEDS: LIDOCAINE 5% PATCH TOP SCH (08:05)
[2019-12-13] MEDS: ENOXAPARIN 40MG/0.4ML SYR SUBCUT SCH (08:05)
[2019-12-13] MEDS ORDERED: GUAIFENESIN/DM 600MG/30MG ER TAB 12HR PO PRN (12:00)
[2019-12-13] MEDS: MEMANTINE HCL 10MG TABLET PO SCH (15:42)
[2019-12-13] MEDS: METFORMIN HCL 500MG TABLET PO SCH (16:57)
[2019-12-13] MEDS: MONTELUKAST SODIUM 10MG TABLET PO SCH (16:57)
[2019-12-13 20:00] VITALS: BP 139/73
[2019-12-14] MEDS: IPRATROPIUM/ALBUTEROL 0.5-3(2.5)MG/3ML NEB HHN SCH ×4 (01:33→20:42)
[2019-12-14] MEDS: BLOOD SUGAR DIAGNOSTIC STRIP TEST SCH ×4 (05:38→21:35)
[2019-12-14] MEDS: CARBIDOPA/LEVODOPA 25/100MG TABLET PO SCH ×3 (05:38→22:05)
[2019-12-14] MEDS: INSULIN LISPRO 100 UNITS/ML SUBCUT SCH ×4 (06:21→22:27)
[2019-12-14 08:00] VITALS: BP 102/66
[2019-12-14] MEDS: FLUTICASONE PROPIONATE 50MCG/SPRAY BOTTLE BOTHNSTRLS SCH ×2 (08:45→22:05)
[2019-12-14] MEDS: FAMOTIDINE 20MG TABLET PO SCH (08:45)
[2019-12-14] MEDS: LIDOCAINE 5% PATCH TOP SCH (08:46)
[2019-12-14] MEDS: ENOXAPARIN 40MG/0.4ML SYR SUBCUT SCH (08:46)
[2019-12-14] MEDS: AMLODIPINE 2.5MG TABLET PO SCH ×2 (08:47→22:06)
[2019-12-14] MEDS: MEMANTINE HCL 28 MG XX SCH (09:00)
[2019-12-14] MEDS: MEMANTINE HCL 10MG TABLET PO SCH (09:23)
[2019-12-14] MEDS ORDERED: TRIAMCINOLONE ACETONIDE 40MG/ML 1ML VIAL IM ONE (09:30)
[2019-12-14] MEDS: MONTELUKAST SODIUM 10MG TABLET PO SCH (17:07)
[2019-12-14] MEDS: METFORMIN HCL 500MG TABLET PO SCH (17:07)
[2019-12-14] MEDS: ACETAMINOPHEN 325MG TABLET PO PRN (19:07)
[2019-12-14 20:00] VITALS: BP 118/65
[2019-12-15] MEDS: IPRATROPIUM/ALBUTEROL 0.5-3(2.5)MG/3ML NEB HHN SCH (00:22)
[2019-12-15] MEDS: BLOOD SUGAR DIAGNOSTIC STRIP TEST SCH (06:00)
[2019-12-15] MEDS: CARBIDOPA/LEVODOPA 25/100MG TABLET PO SCH (06:15)
[2019-12-15] MEDS: INSULIN LISPRO 100 UNITS/ML SUBCUT SCH ×2 (06:17→09:50)
[2019-12-15 07:58] VITALS: BP 130/54
[2019-12-15] MEDS: FLUTICASONE PROPIONATE 50MCG/SPRAY BOTTLE BOTHNSTRLS SCH (08:19)
[2019-12-15] MEDS: MEMANTINE HCL 10MG TABLET PO SCH (08:19)
[2019-12-15] MEDS: FAMOTIDINE 20MG TABLET PO SCH (08:19)
[2019-12-15] MEDS: AMLODIPINE 2.5MG TABLET PO SCH (08:19)
[2019-12-15] MEDS: LIDOCAINE 5% PATCH TOP SCH (08:20)
[2019-12-15] MEDS: ENOXAPARIN 40MG/0.4ML SYR SUBCUT SCH (08:20)
[2019-12-15 08:42] VITALS: BP 130/54
== END 2019-12-15 10:15 | disposition home health service (06) | DRG 91 ==
PROVIDERS: ADMIT Physical Medicine & Rehabilitation Spinal Cord Injury Medicine; ATTEND Hospitalist
DX: G92 Toxic encephalopathy (principal); J18.9 Pneumonia, unspecified organism; A41.9 Sepsis, unspecified organism; G82.50 Quadriplegia, unspecified; I50.33 Acute on chronic diastolic (congestive) heart failure; J96.00 Acute respiratory failure, unspecified whether with hypoxia or hypercapnia; R65.21 Severe sepsis with septic shock; G62.81 Critical illness polyneuropathy; J98.11 Atelectasis; M62.82 Rhabdomyolysis; J44.0 Chronic obstructive pulmonary disease with (acute) lower respiratory infection; N17.9 Acute kidney failure, unspecified; B37.49 Other urogenital candidiasis; E87.2 Acidosis; G20 Parkinson's disease; M19.90 Unspecified osteoarthritis, unspecified site; E78.5 Hyperlipidemia, unspecified; D69.6 Thrombocytopenia, unspecified; D64.9 Anemia, unspecified; R13.10 Dysphagia, unspecified; F02.80 Dementia in other diseases classified elsewhere, unspecified severity, without behavioral disturbance, psychotic disturbance, mood disturbance, and anxiety; E55.9 Vitamin D deficiency, unspecified; M75.41 Impingement syndrome of right shoulder; I11.0 Hypertensive heart disease with heart failure; E73.9 Lactose intolerance, unspecified; F06.31 Mood disorder due to known physiological condition with depressive features; F41.9 Anxiety disorder, unspecified; I25.10 Atherosclerotic heart disease of native coronary artery without angina pectoris; M19.011 Primary osteoarthritis, right shoulder; M54.12 Radiculopathy, cervical region; M54.16 Radiculopathy, lumbar region; Z79.4 Long term (current) use of insulin; Z87.01 Personal history of pneumonia (recurrent)
CPT/HCPCS: 36415; 71045; 73030; 80048; 80053; 81003; 82140; 82306; 82962; 83735; 84100; 84134; 84484; 85025; 87106; 92523; 92610; 93005; 93970; 94640; 97110; 97116; 97162; 97166; 97530; 97535; A6261; J1650; J1815; J3301; J7608; J7620; J7626

== ENCOUNTER 2022-11-20 12:48 | Emergency (ER) | payer MEDICARE, MEDICAID ==
[~2022-11-20] VITALS: Ht 152.4 cm; Wt 50.0 kg
[~2022-11-20 12:48] MED LIST changes: +BENA-8 PO; -BENA20TA10 PO; -CARB1TAB9 PO; +CARB25TA PO; -MEMA1TAB2 PO; +MEMA28CA16 PO; -METF-815 MT; -SITA50TA3 PO
[2022-11-20 13:06] VITALS: BP 144/84
[2022-11-20] MEDS ORDERED: IBUPROFEN 600MG TABLET PO ONE (18:00)
[2022-11-20] MEDS ORDERED: IBUP-2029 MT (18:05)
== END 2022-11-20 19:18 | disposition home or self-care (01) ==
LOC: ER 12:48
DX: S42.412A Displaced simple supracondylar fracture without intercondylar fracture of left humerus, initial encounter for closed fracture (principal); F03.90 Unspecified dementia, unspecified severity, without behavioral disturbance, psychotic disturbance, mood disturbance, and anxiety; E11.9 Type 2 diabetes mellitus without complications; I10 Essential (primary) hypertension; J45.909 Unspecified asthma, uncomplicated; M19.90 Unspecified osteoarthritis, unspecified site; X58.XXXA Exposure to other specified factors, initial encounter; Y93.89 Activity, other specified; Y92.9 Unspecified place or not applicable; Z96.649 Presence of unspecified artificial hip joint; Z98.890 Other specified postprocedural states
CPT/HCPCS: 29125; 73030; 73080; 73110; 99284; A4565